=== PATIENT | male | born 1965 | race Caucasian/White ===

== ENCOUNTER → 2020-10-09 16:14 | Outpatient (CLI) | payer OTHER, SELFPAY ==
[2020-10-09] MEDS: COVID-19 VACC, Ad26(JANSSEN)/PF 0.5 ML IM (16:47)
== END ==
PROVIDERS: Visit Provider Internal Medicine
DX: Z23 Encounter for immunization (principal)
CPT/HCPCS: 0031A; 91303

== ENCOUNTER → 2022-03-12 18:00 | Outpatient (CLI) | payer BC, SELFPAY ==
--- NOTE | 2022-03-12 18:02 | DI.MRI.S_ITS ---
PROCEDURE: MR LUMBAR SPINE WO CON INDICATIONS: Postlaminectomy syndrome, not elsewhere classified TECHNIQUE: Noncontrast sagittal T1 spin echo and T2 fast echo, sagittal STIR, and T2 fast spin echo through the lumbar spine. In cases with scoliosis, additional coronal T2 fast spin echo may be performed. COMPARISON: [facility], MR, L-SPINE W&WO CONTRAST, 10/26/2017, 19:16. [facility], CR, L-SPINE 2-3 VIEWS, 01/10/2015, 11:51. [facility], CR, SPINE LUMB 2 OR 3VW, 06/23/2015, 11:24. FINDINGS: Image quality: Excellent. Alignment and Curvature: 5 lumbar type vertebral bodies are present with probable rudimentary ribs at T12. 5 mm of retrolisthesis of L1 on L2. 4 mm of retrolisthesis of L2 on L3. 2 mm of retrolisthesis of L3 on L4. Bone Marrow: Marrow is of normal overall signal. No acute vertebral body compression fractures. There is mild reactive signal throughout the endplates of the thoracolumbar spine. Spinal Cord: Conus medullaris terminates at the T12-L1 disc space level. Visualized cord demonstrates normal signal and size. Paraspinous Soft Tissues: No paravertebral masses. T12-L1: Moderate disc height loss and desiccation. Mild diffuse disc bulge. Mild facet and ligamentum flavum hypertrophy. Mild canal stenosis. Mild bilateral foraminal stenosis. L1-L2: Moderate disc height loss and desiccation. Mild diffuse disc bulge/osteophyte. Mild facet and ligamentum flavum hypertrophy. Mild epidural lipomatosis. Increased, moderate canal stenosis. No change in mild bilateral foraminal stenoses. L2-L3: Moderate disc desiccation. Mild disc height loss and diffuse disc bulge/osteophyte. Mild facet and ligamentum flavum hypertrophy. Mild epidural lipomatosis. Increased, moderate canal stenosis. No change in mild bilateral foraminal stenoses. L3-L4: Mild disc height loss. Moderate disc desiccation. Mild diffuse disc bulge with superimposed right paracentral disc extrusion, new since the prior examination, which extends inferiorly within the right anterior epidural space, measuring 23 mm craniocaudal by 8 mm anteroposterior by 12 mm transverse. Mild facet and ligamentum flavum hypertrophy. Mild epidural lipomatosis. Increased, severe canal stenosis. No change in moderate bilateral subarticular foraminal stenosis. L4-L5: Moderate disc height loss and desiccation. Mild diffuse disc bulge. Moderate facet and ligamentum flavum hypertrophy. Increased, severe canal stenosis. Increased, moderate subarticular foraminal stenosis bilaterally. L5-S1: Moderate disc height loss and desiccation. Mild diffuse disc bulge. Mild facet hypertrophy bilaterally. Mild epidural lipomatosis. Mild canal stenosis. Mild right and moderate left subarticular foraminal stenosis. IMPRESSION: 1. Multilevel degenerative disc and facet disease, as well as ligamentum flavum hypertrophy and epidural lipomatosis. 2. Multilevel canal stenoses, worst at L3-L4 and L4-L5 where there are increased, severe canal stenoses. 3. Multilevel foraminal stenoses, worst at L3-L4 , L4-L5, and L5-S1, where there are moderate foraminal stenoses. Dictated by: Annabel Rudd M.D. on 03/15/2022 at 8:35 Approved by: Annabel Rudd M.D. on 03/15/2022 at 8:41
== END ==
PROVIDERS: Referring Provider Family Medicine; Visit Provider Family Medicine
DX: M96.1 Postlaminectomy syndrome, not elsewhere classified (principal); M48.061 Spinal stenosis, lumbar region without neurogenic claudication; M48.07 Spinal stenosis, lumbosacral region; M51.36 Other intervertebral disc degeneration, lumbar region; M51.37 Other intervertebral disc degeneration, lumbosacral region
CPT/HCPCS: 72148